=== PATIENT | female | born 1945 | race Caucasian/White ===

== ENCOUNTER 2017-05-22 08:46 | Outpatient (CLI) | payer OTHER ==
[~2017-05-22 08:46] MED LIST: CRESTOR10 MG PO; KEPPRA1000 MG PO; KEPPRA500 MG; NORVASC10 MG; NORVASC10 MG PO; PROVENTIL3 ML/2.5 M; VASOTEC10 MG; VASOTEC10 MG NGT; VITAMIN D400 UNI2 PO
== END 2017-05-22 08:53 | disposition home or self-care (01) ==
LOC: RX STUDY 08:46
DX: R13.0 Aphagia (principal); R10.13 Epigastric pain

== ENCOUNTER 2017-05-23 08:54 | Outpatient (CLI) | payer OTHER | END 2017-05-23 09:06 | disposition home or self-care (01) | LOC: SONOGRAMA 08:54 → MAMO-SONO 09:00 → SONOGRAMA 09:06 | DX: M75.111 Incomplete rotator cuff tear or rupture of right shoulder, not specified as traumatic (principal) ==

== ENCOUNTER 2019-01-29 11:47 | Outpatient (CLI) | payer OTHER | END 2019-01-29 11:48 | disposition home or self-care (01) | LOC: RAD 11:47 | DX: I70.0 Atherosclerosis of aorta (principal) ==

== ENCOUNTER 2019-02-05 12:22 | Outpatient (CLI) | payer OTHER | END 2019-02-05 12:41 | disposition home or self-care (01) | LOC: MRI 12:22 | DX: M54.5 Low back pain (principal); M54.16 Radiculopathy, lumbar region | CPT/HCPCS: 72148 ==

== ENCOUNTER 2019-09-08 08:33 | Emergency (ER) | payer OTHER ==
[~2019-09-08] VITALS: Ht 165.1 cm; Wt 74.8 kg
== END 2019-09-08 09:14 | disposition home or self-care (01) ==
LOC: ER 08:33
DX: T78.1XXA Other adverse food reactions, not elsewhere classified, initial encounter (principal); L29.8 Other pruritus

== ENCOUNTER 2019-12-09 10:06 | Outpatient (CLI) | payer OTHER | END 2019-12-09 10:09 | disposition home or self-care (01) | LOC: RAD 10:06 | PROVIDERS: ATTEND Physical Medicine & Rehabilitation | DX: M17.0 Bilateral primary osteoarthritis of knee (principal) ==

== ENCOUNTER → 2019-12-14 09:23 | Outpatient (CLI) | payer OTHER | END | disposition home or self-care (01) | LOC: LAB 09:23 | PROVIDERS: ATTEND Internal Medicine Cardiovascular Disease | DX: I10 Essential (primary) hypertension (principal); E78.2 Mixed hyperlipidemia ==

== ENCOUNTER 2021-01-05 11:03 | Outpatient (CLI) | payer OTHER | END 2021-01-05 11:08 | disposition home or self-care (01) | LOC: SONOGRAMA 11:03 | PROVIDERS: ATTEND Pathology Anatomic Pathology & Clinical Pathology | DX: D34 Benign neoplasm of thyroid gland (principal); E04.8 Other specified nontoxic goiter; E04.2 Nontoxic multinodular goiter ==

== ENCOUNTER 2021-05-23 09:00 | Outpatient (CLI) | payer OTHER | END 2021-05-23 09:15 | disposition home or self-care (01) | LOC: PPH VACUNA 09:00 | PROVIDERS: ATTEND Emergency Medicine Pediatric Emergency Medicine | DX: Z23 Encounter for immunization (principal) ==

== ENCOUNTER 2021-06-17 10:52 | Outpatient (CLI) | payer OTHER | END 2021-06-17 11:03 | disposition home or self-care (01) | LOC: RAD 10:52 | PROVIDERS: ATTEND Emergency Medicine | DX: M25.561 Pain in right knee (principal) ==

== ENCOUNTER 2021-09-05 15:36 | Outpatient (CLI) | payer OTHER | END 2021-09-05 15:38 | disposition home or self-care (01) | LOC: RAD 15:36 | PROVIDERS: ATTEND Specialist | DX: J45.30 Mild persistent asthma, uncomplicated (principal) ==

== ENCOUNTER 2023-12-25 13:26 | Outpatient (CLI) | payer OTHER | END 2023-12-25 13:27 | disposition home or self-care (01) | LOC: NUCLEAR 13:26 | PROVIDERS: ATTEND Physical Medicine & Rehabilitation | DX: M81.0 Age-related osteoporosis without current pathological fracture (principal) ==

== ENCOUNTER 2024-01-10 08:54 | Emergency (ER) | payer OTHER ==
[~2024-01-10] VITALS: Ht 162.6 cm; Wt 77.1 kg
[2024-01-10] MEDS ORDERED: AMLODIPINE BESYL5 MG (09:10)
[2024-01-10] MEDS ORDERED: MEMANTINE HCL5 MG (09:10)
[2024-01-10] MEDS ORDERED: ADULT LOW DOSE81 M1 (09:10)
[2024-01-10] MEDS ORDERED: ATORVASTATIN CA10 MG (09:11)
[2024-01-10] MEDS ORDERED: UCERIS9 MG (09:11)
[2024-01-10] MEDS ORDERED: TAPAZOLE5 MG (09:11)
[2024-01-10] MEDS ORDERED: CARDURA1 MG (09:11)
[2024-01-10] MEDS ORDERED: XOPENEX HFA15 GM (09:11)
[2024-01-10] MEDS ORDERED: COZAAR100 MG (09:11)
[2024-01-10] MEDS ORDERED: ARICEPT10 MG (09:12)
[2024-01-10] MEDS ORDERED: HYDROCORTISONE SODIUM SUCC/PF 100 MG VIAL ONE (09:43)
[2024-01-10] MEDS ORDERED: FAMOTIDINE/PF 20 MG/2 ML VIAL ONE (09:44)
[2024-01-10] MEDS ORDERED: HYDROCORTISONE SODIUM SUCC/PF 50 MG/ML ML IV ONE (09:45)
[2024-01-10] MEDS ORDERED: FAMOtidine 10 MG/ML (4ML VIAL) IV ONE (09:45)
[2024-01-10] MEDS ORDERED: BENZONATATE 100 MG CAPSULE PO ONE (09:45)
[2024-01-10] MEDS ORDERED: LEVALBUTEROL HCL 0.63 MG/3 ML SOLUTION IH ONE ×2 (09:45→09:50)
[2024-01-10 10:21] LABS: ABG PH 7.459 (7.35-7.45); ABG PO2 85.3 mmHg (80-100); ABG pCO2 30.3 mmHg (35-45); BASE EXCESS -1.6 mmol/l; Tco2 21.9 mmol/l
[2024-01-10 10:26] LABS: HEMOGLOBIN 10.7 g/dL (12.0-15.00); MEAN CELL VOLUME 83.5 fL (80.00-100.00); MEAN CORPUSCULAR HGB CONC 33.6 g/dl (32.0-36.0); PLATELET COUNT 263 K/uL (150-450); RED BLOOD COUNT 3.84 M/uL (4.00-6.00)
[2024-01-10 10:53] LABS: INR 1.05; PARTIAL THROMBOPLASTIN TIME 26.8 SECONDS (22.0-34.0); PROTHROMBIN TIME 11.4 SECONDS (9.0-11.5)
[2024-01-10 11:06] LABS: allen test SATISFACTORY; o2 21 %; puncture site RADIAL LEFT
[2024-01-10 11:09] LABS: ALBUMIN 3.5 gm/dL (3.4-5.0); BILIRUBIN TOTAL 0.36 mg/dL (0.3-1.2); CALCIUM 9.1 mg/dL (8.5-10.1); CREATININE SERUM 0.93 mg/dL (0.55-1.02); GFR 58.16; GLOBULINA 3.5 G/DL (2.4-3.5); POTASSIUM 4.18 mEq/L (3.5-5.1)
[2024-01-10 12:01] LABS: URINE APPEARANCE Clear; URINE BILIRRUBIN Negative (NEGATIVE); URINE BLOOD Negative; URINE COLOR Yellow; URINE GLUCOSE Negative (NEGATIVE); URINE KETONE Negative (NEGATIVE); URINE LEUKOCYTE Negative; URINE NITRATE Negative; URINE PROTEIN Negative (NEGATIVE); URINE UROBILINOGEN 0.2 E.U./dl
[2024-01-10 12:13] LABS: URINE BACTERIA 2.5 uL (0.0-1933); URINE WBC 0.7 uL (0.0-23.2)
[2024-01-10] MEDS ORDERED: DEXAMETHASONE SODIUM PHOSPHATE 4 MG/ML VIAL ONE (13:06)
[2024-01-10] MEDS ORDERED: DEXAMETHASONE SODIUM PHOSP/PF 10 MG/ML VIAL IV ONE (13:15)
== END 2024-01-10 13:16 | disposition home or self-care (01) ==
LOC: ER 08:55
PROVIDERS: General Practice
DX: J44.1 Chronic obstructive pulmonary disease with (acute) exacerbation (principal); J45.901 Unspecified asthma with (acute) exacerbation; I10 Essential (primary) hypertension; G91.8 Other hydrocephalus; Z88.8 Allergy status to other drugs, medicaments and biological substances; Z20.822 Contact with and (suspected) exposure to COVID-19
CPT/HCPCS: 36415; 71046; 82803; 94640; 99283; J3490

== ENCOUNTER 2024-09-11 13:19 | Outpatient (CLI) | payer OTHER ==
[~2024-09-11 13:19] MED LIST changes: +ADULT LOW DOSE81 M1; +AMLODIPINE BESYL5 MG; +ARICEPT10 MG; +ATORVASTATIN CA10 MG; +CARDURA1 MG; +COZAAR100 MG; +MEMANTINE HCL5 MG; +TAPAZOLE5 MG; +UCERIS9 MG; +XOPENEX HFA15 GM
== END 2024-09-11 13:25 | disposition home or self-care (01) ==
LOC: RAD 13:19
DX: J90 Pleural effusion, not elsewhere classified (principal)

== ENCOUNTER 2024-10-02 11:50 | Emergency (ER) | payer OTHER ==
[~2024-10-02] VITALS: Ht 165.1 cm; Wt 77.1 kg
[2024-10-02] MEDS ORDERED: NORVASC2.5 M1 (12:12)
[2024-10-02] MEDS ORDERED: MEDROL2 MG PO (12:13)
[2024-10-02 12:55] LABS: BASO % 0.2 % (0.1-1.2); EOS # 0.18 (0.04-0.54); EOS % 1.4 % (0.7-7.0); HEMATOCRIT 37.5 % (34.1-44.9); HEMOGLOBIN 11.9 g/dL (11.2-15.7); LYMPH # 3.98 (1.18-3.74); LYMPH % 30.6 % (19.3-53.1); MEAN CORPUSCULAR HEMOGLOBIN 26.3 pg (25.6-32.2); MONO # 1.37 (0.24-0.82); MONO % 10.5 % (4.7-12.5); NEUT # 7.27 (1.56-6.13); NEUT % 55.8 % (34.0-71.1); PLATELET COUNT 325 K/uL (163-369); RED BLOOD COUNT 4.53 M/uL (3.93-5.22); RED CELL DISTRIBUTION WIDTH 14.5 % (11.6-14.4)
[2024-10-02 13:57] LABS: URINE APPEARANCE Clear; URINE BILIRRUBIN Negative (NEGATIVE); URINE BLOOD Negative; URINE COLOR Yellow; URINE GLUCOSE Negative (NEGATIVE); URINE KETONE Trace (NEGATIVE); URINE LEUKOCYTE Negative; URINE NITRATE Negative; URINE PROTEIN Negative (NEGATIVE)
[2024-10-02 13:59] LABS: CALCIUM 8.9 mg/dL (8.5-10.1); CREATININE SERUM 1.08 mg/dL (0.55-1.02); GFR 48.81; POTASSIUM 3.56 mEq/L (3.5-5.1)
[2024-10-02 14:01] LABS: URINE BACTERIA 24.4 uL (0.0-1933); URINE CAST 8.24 uL (0.0-1.40); URINE EPITHELIAL CELLS 9.3 uL (0.0-38.8); URINE WBC 9.4 uL (0.0-23.2)
== END 2024-10-02 16:27 | disposition home or self-care (01) ==
LOC: ER 12:31
PROVIDERS: Emergency Medicine
DX: R11.0 Nausea (principal); R42 Dizziness and giddiness; I10 Essential (primary) hypertension; Z88.8 Allergy status to other drugs, medicaments and biological substances

== ENCOUNTER 2024-10-04 21:32 | Emergency (ER) | payer OTHER ==
[~2024-10-04] VITALS: Ht 165.1 cm; Wt 77.1 kg
[~2024-10-04 21:32] MED LIST changes: +MEDROL2 MG PO; +NORVASC2.5 M1
[2024-10-04] MEDS ORDERED: FAMOtidine 10 MG/ML (4ML VIAL) IV ONE (23:30)
[2024-10-04] MEDS ORDERED: 0.9 % SODIUM CHLORIDE 1,000 ML IV ONE (23:30)
[2024-10-05 00:18] LABS: BASO % 0.1 % (0.1-1.2); EOS # 0.03 (0.04-0.54); EOS % 0.3 % (0.7-7.0); HEMATOCRIT 39.8 % (34.1-44.9); HEMOGLOBIN 12.6 g/dL (11.2-15.7); LYMPH # 1.08 (1.18-3.74); LYMPH % 10.8 % (19.3-53.1); MEAN CORPUSCULAR HEMOGLOBIN 26.6 pg (25.6-32.2); MONO # 0.96 (0.24-0.82); MONO % 9.6 % (4.7-12.5); NEUT % 78.6 % (34.0-71.1); PLATELET COUNT 287 K/uL (163-369); RED BLOOD COUNT 4.73 M/uL (3.93-5.22); RED CELL DISTRIBUTION WIDTH 14.6 % (11.6-14.4)
[2024-10-05 00:40] LABS: AMYLASE 52 U/L (25-115)
[2024-10-05 00:41] LABS: LIPASE 20 U/L (13-75)
== END 2024-10-05 12:40 | disposition home or self-care (01) ==
LOC: ER 21:41
PROVIDERS: General Practice
DX: K29.70 Gastritis, unspecified, without bleeding (principal); R11.0 Nausea; R11.10 Vomiting, unspecified; I10 Essential (primary) hypertension; Z88.8 Allergy status to other drugs, medicaments and biological substances

== ENCOUNTER 2025-01-04 15:10 | Outpatient (CLI) | payer OTHER | END 2025-01-04 15:19 | disposition home or self-care (01) | LOC: RAD 15:10 | PROVIDERS: ATTEND Physical Medicine & Rehabilitation | DX: M17.11 Unilateral primary osteoarthritis, right knee (principal); M17.12 Unilateral primary osteoarthritis, left knee ==

== ENCOUNTER 2025-01-13 11:01 | Outpatient (CLI) | payer OTHER | END 2025-01-13 11:02 | disposition home or self-care (01) | LOC: NUCLEAR 11:01 | PROVIDERS: ATTEND Physical Medicine & Rehabilitation | DX: I87.2 Venous insufficiency (chronic) (peripheral) (principal) ==

== ENCOUNTER 2025-01-14 10:06 | Outpatient (CLI) | payer OTHER | END 2025-01-14 10:07 | disposition home or self-care (01) | LOC: NUCLEAR 10:06 | PROVIDERS: ATTEND Physical Medicine & Rehabilitation | DX: I73.9 Peripheral vascular disease, unspecified (principal) ==